=== PATIENT | female | born 1940 | race Caucasian/White ===

== ENCOUNTER 2022-04-19 17:47 | Emergency (ER) | payer MEDICARE ==
[~2022-04-19] VITALS: Ht 170.2 cm; Wt 59.0 kg
--- NOTE | 2022-04-19 18:55 | NUR ---
Started IV 20g left FA, jose de jesus blood.
[2022-04-19] MEDS ORDERED: IV NORMAL SALINE 1000 ML BAG IV ONE ×2 (19:15→20:15)
[2022-04-19] MEDS ORDERED: MECLIZINE HCL 25 MG TABLET PO ONE (19:15)
[2022-04-19] MEDS ORDERED: MECLIZINE HCL 25 MG TABLET ONE (19:18)
[2022-04-19 19:24] LABS: MEAN CORPUSCULAR VOLUME 92.7 fL (75.5-95.3); PLATELET COUNT (AUTO) 249 K/uL (179-408)
[2022-04-19 19:32] LABS: CREATININE 0.8 mg/dL (0.6-1.3); POTASSIUM 3.4 mmol/L (3.5-5.1)
[2022-04-19] MEDS ORDERED: MECL-159 PO (19:59)
[2022-04-19] MEDS ORDERED: ONDA4TAB5 PO (19:59)
[2022-04-19] MEDS ORDERED: ONDANSETRON 4 MG/2 ML VIAL ONE (20:08)
[2022-04-19] MEDS ORDERED: ONDANSETRON 4 MG/2 ML VIAL IV ONE (20:15)
--- NOTE | 2022-04-19 22:15 | NUR ---
Patient discharged to home in stable condition accompanied by friend. Written and verbal after care instructions given. Patient verbalizes understanding of instructions. Stressed follow up or return to ER for worsening s/s.
[2022-04-19 22:16] VITALS: BP 144/80
== END 2022-04-19 22:16 | disposition home or self-care (01) ==
LOC: ER 17:47
DX: R42 Dizziness and giddiness (principal); Z88.6 Allergy status to analgesic agent; Z88.8 Allergy status to other drugs, medicaments and biological substances; R11.0 Nausea; R03.0 Elevated blood-pressure reading, without diagnosis of hypertension
CPT/HCPCS: 99284; 96374; 96361; 80048; 85025; 36415; J2405; J7040; A4663; J8597